=== PATIENT | male | born 1990 | race Two or more races ===

== ENCOUNTER 2016-12-07 12:31 | Emergency (ER) | payer OTHER ==
--- NOTE | ~2016-12-07 | CT71 ---
[facility] RADIOLOGY TEXT RESULTS PATIENT: ALISHA FRANCO LOCATION: SED : 92 UNIT #: [id number] AGE: [address]: Rafael Canada MD SEX: M ORDER DR: [id number] [place] [id number] E MR#: [id number] Acc #: [id number] NAME: ALISHA FRANCO : 1990 SEX: M STUDY DATE/TIME: 12/07/2016 13:23 UNIT: SED ROOM: STUDY DESCRIPTION: CT Head Wo Contrast Attending Physician: Rafael Canada M.D. Ordering Physician: Rafael Canada M.D. Primary Care Physician: No Primary Care Physician MEDICAL IMAGING REPORT This report is preliminary unless electronic signature is present. EXAM Noncontrast CT head. DATE 12/07/2016 at 13:23 HISTORY 26-year-old male with right distal hand and forearm numbness today. No known injury. Patient's states he got drunk and passed out last night and hit head. Patient does not remember falling last night. COMPARISON None. TECHNIQUE This CT exam was performed with one or more of the following radiation dose reduction techniques: automatic control, adjustment of mA and/or kV according to patient size, and iterative reconstruction. FINDINGS No acute displaced calvarial fracture is seen. There is moderate bilateral ethmoid sinus mucosal thickening. Mastoid air cells appear clear. No acute intracranial hemorrhage, mass lesion, mass effect or midline shift is identified, and there is no convincing CT evidence of acute or evolving infarct. Ventricular configuration is within normal limits. IMPRESSION 1. No acute intracranial findings. 2. Moderate bilateral ethmoid sinus disease. Dictated by... [facility] RADIOLOGY TEXT RESULTS PATIENT: ALISHA FRANCO LOCATION: SED : 92 UNIT #: [id number] AGE: [address]: Rafael Canada MD SEX: M ORDER DR: Sunshine Inman M.D. THIS IS AN ELECTRONICALLY VERIFIED REPORT Sunshine Inman M.D. at 12/09/2016 7:14 AM TITO/christal TD: 12/07/2016 13:59 JOB #: [id number] MEDICAL IMAGING REPORT Page 1 of 1
--- NOTE | ~2016-12-07 | CT52 ---
[facility] A Service [facility] RADIOLOGY TEXT RESULTS PATIENT: ALISHA FRANCO LOCATION: SED : [birth year] UNIT #: [id number] AGE: [address]: Rafael Canada MD SEX: M ORDER DR: [id number] [place] [id number] E MR#: [id number] Acc #: [id number] NAME: ALISHA FRANCO : 1990 SEX: M STUDY DATE/TIME: 12/07/2016 13:25 UNIT: SED ROOM: STUDY DESCRIPTION: CT Cervical Spine Wo Cont Attending Physician: Rafael Canada M.D. Ordering Physician: Rafael Canada M.D. Primary Care Physician: No Primary Care Physician MEDICAL IMAGING REPORT This report is preliminary unless electronic signature is present. EXAM CT cervical spine without contrast. DATE 12/07/2016 HISTORY 26-year-old male with right distal hand and forearm numbness today. Patient's states he got drunk and passed out last night and hit his head. Patient does not remember falling last night. COMPARISON None PROCEDURE 2 mm noncontrast axial images through the cervical spine. Sagittal and coronal reformatted images were obtained. This CT exam was performed with one or more of the following radiation dose reduction techniques: automatic exposure control, adjustment of mA and/or kV according to patient size, and iterative reconstruction. FINDINGS Craniocervical junction is intact. Cervical vertebral bodies maintain normal height and alignment without evidence of acute cervical spine fracture or subluxation. Disc space height appears preserved. No high-grade canal or foraminal stenosis is seen. Imaged paraspinal soft tissues appear unremarkable. IMPRESSION Normal CT of the cervical spine. [facility] A Service [facility] RADIOLOGY TEXT RESULTS PATIENT: ALISHA FRANCO LOCATION: SED : [birth year] UNIT #: [id number] AGE: [address]: Rafael Canada MD SEX: M ORDER DR: Dictated by... Sunshine Inman M.D. THIS IS AN ELECTRONICALLY VERIFIED REPORT Sunshine Inman M.D. at 12/09/2016 7:14 AM TITO/alessio TD: 12/07/2016 14:04 JOB #: [id number] MEDICAL IMAGING REPORT Page 1 of 1
[2016-12-07] MEDS ORDERED: NO MEDICATIONS (12:44)
== END 2016-12-07 14:37 | disposition home or self-care (01) ==
LOC: SED 12:31
DX: G56.30 Lesion of radial nerve, unspecified upper limb (principal)
CPT/HCPCS: 70450; 72125; 99284